=== PATIENT | female | born 1965 | race Caucasian/White ===

== ENCOUNTER → 2019-04-26 | Outpatient (CLI) | payer BC ==
--- NOTE | 2019-04-27 07:23 | US ---
EXAMINATION TYPE: US thyroid st tissue head/neck DATE OF EXAM: 04/26/2019 COMPARISON: NONE CLINICAL HISTORY: R94.6 Abnormal results. Abnormal labs. GLAND SIZE: Right Lobe: 5.2 x 1.4 x 1.7 cm Overall Parenchyma: homogenous Left Lobe: 5.6 x 1.9 x 3.0 cm Overall Parenchyma: heterogeneous Isthmus Thickness: .3 cm NODULES RIGHT: # of nodules measured on right: 0 LEFT: # of nodules measured on left: 1 1. 4.2 X 1.7 x 3.2 cm solid nodule at the mid pole with well-defined margins; . This nodule is wi romy than tall and shows intranodular vascularity. Prior size No prior exam. ISTHMUS: # of nodules measured in the isthmus: 0 Bilateral neck scanned, no evidence of lymphadenopathy. IMPRESSION: 4.2 cm solid left vascular thyroid nodule. Fine-needle aspiration is recommended if there are no prior outside examinations available for comparison of stability.
== END | disposition home or self-care (01) ==
LOC: RADUSWWP 16:06
PROVIDERS: ATTEND Family Medicine
DX: E04.1 Nontoxic single thyroid nodule (principal)
CPT/HCPCS: 76536

== ENCOUNTER → 2019-05-02 | Outpatient (CLI) | payer BC ==
--- NOTE | 2019-05-03 13:12 | NM ---
EXAMINATION TYPE: NM thyroid image w uptake DATE OF EXAM: 05/03/2019 COMPARISON: NONE HISTORY: Heat intolerance excessive sweating Change in appetite TECHNIQUE: Thyroid iodine uptake is calculated and images performed after the oral administration of 297 uCi I-123 uCi 1-123 Capsule. FINDINGS: There is normal distribution of activity throughout the gland. The 4 hour iodine uptake is calculated at 9.5% (normal range 8-14%). The 24-hour iodine uptake is calculated at 20.7% (normal ra nge 15-35%). IMPRESSION: Normal thyroid scan and uptake.
== END | disposition home or self-care (01) ==
LOC: RADNMMAIN 09:26
PROVIDERS: ATTEND Family Medicine
DX: R94.6 Abnormal results of thyroid function studies (principal)
CPT/HCPCS: 78014; A9516

== ENCOUNTER 2019-05-09 11:13 | Day surgery (SDC) | payer BC ==
[2019-05-09 12:02] VITALS: TEMP 97.7
[2019-05-09 13:28] VITALS: RESP 16
[2019-05-09 13:35] VITALS: BP 142/74; PULSE 73
--- NOTE | 2019-05-09 13:38 | US ---
ULTRASOUND GUIDED FNA THYROID BIOPSY: CLINICAL HISTORY: Request for biopsy of a large left thyroid nodule FINDINGS: The procedure was explained to the patient. The risks, complications, benefits and alternatives were discussed and any questions were answered. Informed consent was obtained. Patient was placed supin e on the ultrasound table and prepped and draped in the usual sterile fashion. Utilizing a 25 gauge needle, five passes were made into the requested left thyroid nodule. Patient was stable throughout the procedure. Pathology is pending. All elements of maximal barrier technique were utilized. IMPRESSION: 1. Successful ultrasound guided FNA thyroid biopsy.
== END 2019-05-09 13:40 | disposition home or self-care (01) ==
LOC: RADPROMAIN 11:13
PROVIDERS: ATTEND Family Medicine
DX: E04.1 Nontoxic single thyroid nodule (principal); E05.90 Thyrotoxicosis, unspecified without thyrotoxic crisis or storm; R94.6 Abnormal results of thyroid function studies
CPT/HCPCS: 10005; 88173; 88305

== ENCOUNTER 2019-12-04 08:48 | Day surgery (SDC) | payer BC ==
[2019-12-04] MEDS ORDERED: LACTATED RINGERS 1,000 ML IV ONE (09:13)
[2019-12-04 09:18] VITALS: TEMP 98.6
[2019-12-04] MEDS ORDERED: LIDOCAINE 1% (10MG/ML) FOR IV START INTRADERMA ONE (09:18)
[2019-12-04] MEDS ORDERED: PROPOFOL 10 MG/ML 20 ML VIAL IV ONE (10:42)
[2019-12-04] MEDS ORDERED: LIDOCAINE 1% INJ 10MG/ML (20 ML MDV) ONE (10:42)
--- NOTE | 2019-12-04 11:17 | P.PCN ---
Date of Procedure: 12/04/19 Description of Procedure: BRIEF HISTORY: Patient is a 54-year-old pleasant female scheduled for an elective colonoscopy as a part of screening for malignant neoplasm of the colon. No prior colonoscopy reported. Denies any signs or symptoms of GI bleed. No family history of colon cancer. PROCEDURE PERFORMED: Colonoscopy. PREOPERATIVE DIAGNOSIS: Screening for malignant neoplasm of the colon, no prior colonoscopy. ESTIMATED BLOOD LOSS: Minimal. IV sedation per Anesthesia. PROCEDURE: After informed consent was obtained, the patient, was brought into the endoscopy unit. IV sedation was administered by Anesthesia under continuous monitoring. Digital rectal examination was normal. Initially the Olympus CF-190 flexible video colonoscope was then inserted in the rectum, gradually advanced into the cecum without any difficulty. Careful examination was performed as the scope was gradually being withdrawn. Ileocecal valve and the appendiceal orifice were visualized and appeared normal. Prep was excellent. Mucosa of the cecum, ascending colon, transverse colon, descending colon, sigmoid colon, and rectum appeared normal. Retroflexion was performed in the rectum and no lesions were seen, low-grade internal hemorrhoids seen. The patient tolerated the procedure well. IMPRESSION: Normal-appearing colon from rectum to cecum. RECOMMENDATIONS: Findings of this examination were discussed with the patient. Okay to resume diet. Okay to resume medications. Would recommend repeat colonoscopy in 10 years for screening, or sooner if signs or symptoms which warrant further evaluation develop.
[2019-12-04 11:18] VITALS: RESP 16
[2019-12-04 11:32] VITALS: BP 146/70; PULSE 65
== END 2019-12-04 12:01 | disposition home or self-care (01) ==
LOC: ORWHC2ENDO 08:48
PROVIDERS: ATTEND Internal Medicine
DX: Z12.11 Encounter for screening for malignant neoplasm of colon (principal); K64.8 Other hemorrhoids; E05.90 Thyrotoxicosis, unspecified without thyrotoxic crisis or storm; Z79.899 Other long term (current) drug therapy; Z98.890 Other specified postprocedural states
CPT/HCPCS: J2001; J2704; G0121

== ENCOUNTER → 2020-01-14 | Outpatient (CLI) | payer BC ==
--- NOTE | 2020-01-15 06:55 | US ---
EXAMINATION TYPE: US thyroid st tissue head/neck DATE OF EXAM: 01/14/2020 COMPARISON: 04/26/2019 CLINICAL HISTORY: E05.90 hyperthyroidism, E04.1 nontoxic goiter. Patient states having left thyroid r emoved Jul 2019. GLAND SIZE: Right Lobe: 4.6 x 1.5 x 1.2 cm Overall Parenchyma: heterogenous Left Lobe: Surgically absent Isthmus Thickness: 0.5 cm NODULES RIGHT: # of nodules measured on right: 1 1. 0.4 X 0.3 x 0.2 cm hypoechoic nodule at the mid pole with well-defined margins. This nodule is wider than tall and shows no intranodular vascularity. Prior size: No prior LEFT: Surgically absent ISTHMUS: # of nodules measured in the isthmus: 0 Bilateral neck scanned, no evidence of lymphadenopathy. IMPRESSION: Postoperative changes of a left-sided thyroidectomy. New nonspecific subcentimeter nodule right thyro id lobe.
== END | disposition home or self-care (01) ==
LOC: RADUSWWP 16:42
PROVIDERS: ATTEND Internal Medicine Endocrinology, Diabetes & Metabolism
DX: E04.1 Nontoxic single thyroid nodule (principal); Z98.890 Other specified postprocedural states
CPT/HCPCS: 76536

== ENCOUNTER → 2021-06-30 | Outpatient (CLI) | payer BC ==
--- NOTE | 2021-06-30 13:08 | US ---
EXAMINATION TYPE: US thyroid st tissue head/neck DATE OF EXAM: 06/30/2021 COMPARISON: US 01/14/20 CLINICAL HISTORY: 56-year-old female E05.90 SUBCLINICAL HYPERTHYROIDISM. Follow-up to previous. Left lobe removed TECHNIQUE: Multiple sonographic images of the thyroid gland are obtained. FINDINGS: GLAND SIZE: Right Lobe: 4.3 x 1.3 x 1.2 cm Overall Parenchyma: heterogenous Left Lobe: Surgically absent Isthmus Thickness: 0.5 cm NODULES RIGHT: # of nodules measured on right: 1 1. 0.5 X 0.4 x 0.2 cm, upper/mid medial, solid or almost completely solid, hypoechoic nodule, which is wider than tall, with smooth margins, without echogenic foci. Prior size: 0.4 X 0.3 x 0.2 cm LEFT: # of nodules measured on left: 0 ISTHMUS: # of nodules measured in the isthmus: 0 Bilateral neck scanned, no evidence of lymphadenopathy. IMPRESSION: 1. Status post left thyroidectomy. 2. Small hypoechoic nodule in the right lobe, stable to minimally larger at 5 x 4 mm (versus 4 x 3 mm , previously).
== END | disposition home or self-care (01) ==
LOC: RADUSWWP 12:14
PROVIDERS: ATTEND Internal Medicine Endocrinology, Diabetes & Metabolism
DX: E89.0 Postprocedural hypothyroidism (principal); E04.1 Nontoxic single thyroid nodule
CPT/HCPCS: 76536